=== PATIENT | female | born 1985 | race Two or more races ===

== ENCOUNTER 2017-01-23 22:51 | Emergency (ER) | payer SELFPAY ==
[~2017-01-23] VITALS: Ht 165.1 cm; Wt 85.2 kg
[~2017-01-23 22:51] MED LIST: DENIES CURRENT MEDS; IBUPROFEN600 MG PO; LORTAB 7.57.5 MG PO; PRENATAL1 TA1 PO; ULTRAM50 M1 PO; no home meds
[2017-01-23] MEDS ORDERED: NAPROSYN500 MG PO (23:43)
[2017-01-24 00:20] VITALS: BP 129/90
== END 2017-01-24 00:25 | disposition home or self-care (01) | DRG 605 ==
LOC: ED 22:51
DX: S40.011A Contusion of right shoulder, initial encounter (principal); W11.XXXA Fall on and from ladder, initial encounter; Y93.89 Activity, other specified; Y92.009 Unspecified place in unspecified non-institutional (private) residence as the place of occurrence of the external cause

== ENCOUNTER 2020-03-02 | Emergency (ER) | payer SELFPAY ==
[~2020-03-02] MED LIST changes: +NAPROSYN500 MG PO
[2020-03-02] MEDS ORDERED: MOTRIN400 MG PO (19:32)
[2020-03-02] MEDS ORDERED: VOLTAREN1%GEL TOP (19:32)
== END 2020-03-02 19:40 | disposition home or self-care (01) | DRG 563 ==
DX: S86.911A Strain of unspecified muscle(s) and tendon(s) at lower leg level, right leg, initial encounter (principal); W19.XXXA Unspecified fall, initial encounter

== ENCOUNTER 2021-05-05 01:19 | Emergency (ER) | payer OTHER ==
[~2021-05-05] VITALS: Ht 165.1 cm; Wt 61.0 kg
[~2021-05-05 01:19] MED LIST changes: +MOTRIN400 MG PO; +VOLTAREN1%GEL TOP
[2021-05-05] MEDS ORDERED: VOLTAREN75 MG PO (02:15)
[2021-05-05 02:49] VITALS: BP 96/63
== END 2021-05-05 02:51 | disposition home or self-care (01) ==
LOC: ED 01:19
DX: S86.911A Strain of unspecified muscle(s) and tendon(s) at lower leg level, right leg, initial encounter (principal); X50.0XXA Overexertion from strenuous movement or load, initial encounter; Y93.68 Activity, volleyball (beach) (court)

== ENCOUNTER 2023-12-15 14:03 | Emergency (ER) | payer SELFPAY ==
[~2023-12-15] VITALS: Ht 165.1 cm; Wt 83.0 kg
[2023-12-15] VITALS (8 sets, daily range): BP systolic 106–118; BP diastolic 74–83
[~2023-12-15 14:03] MED LIST changes: +VOLTAREN75 MG PO
[2023-12-15 16:14] LABS: URINE BILIRUBIN - DIPSTICK Negative (NEGATIVE); URINE BLOOD DIPSTICK Trace-lysed (NEGATIVE); URINE COLOR Yellow; URINE GLUCOSE - DIPSTICK Negative (NEGATIVE); URINE KETONE Negative (NEGATIVE); URINE LEUK ESTERASE Trace (NEGATIVE); URINE NITRITE - DIPSTICK Negative (Negative); URINE PROTEIN - DIPSTICK Negative (NEG-TRACE); URINE SPECIFIC GRAVITY 1.015; URINE UROBILINOGEN - DIPSTICK 0.2 E.U./dL (0.2)
[2023-12-15] MEDS ORDERED: FLEXERIL5 M1 PO (18:50)
[2023-12-15] MEDS ORDERED: PERCOCET 5/321 COMBO PO (18:50)
== END 2023-12-15 19:05 | disposition home or self-care (01) | DRG 552 ==
LOC: ED 14:03
PROVIDERS: Nurse Practitioner Family
DX: M51.86 Other intervertebral disc disorders, lumbar region (principal)

== ENCOUNTER 2024-07-17 21:09 | Emergency (ER) | payer SELFPAY ==
[~2024-07-17] VITALS: Ht 165.1 cm; Wt 82.0 kg
[~2024-07-17 21:09] MED LIST changes: +FLEXERIL5 M1 PO; +PERCOCET 5/321 COMBO PO
[2024-07-17] MEDS ORDERED: NEOMYCIN-BACITRACIN-POLYMYXIN 0.5 GM/PAK PAK TOP ONE (21:30)
[2024-07-17] MEDS ORDERED: Diph, Acellular Pertussis, Tet 0.5 ML/VIAL (Tdap) SDV IM ONE (21:30)
[2024-07-17 21:45] VITALS: BP 112/85
== END 2024-07-17 21:45 | disposition home or self-care (01) | DRG 605 ==
LOC: ED 21:09
PROC: 0HQGXZZ Repair Left Hand Skin, External Approach (ICD-10-PCS; principal; 2024-07-17)
DX: S61.412A Laceration without foreign body of left hand, initial encounter (principal); W26.0XXA Contact with knife, initial encounter; Y93.G1 Activity, food preparation and clean up; Y92.000 Kitchen of unspecified non-institutional (private) residence as the place of occurrence of the external cause

== ENCOUNTER 2024-07-30 00:45 | Emergency (ER) | payer SELFPAY ==
[~2024-07-30] VITALS: Ht 165.1 cm; Wt 82.0 kg
[2024-07-30 01:21] VITALS: BP 112/78
== END 2024-07-30 01:37 | disposition home or self-care (01) | DRG 950 ==
LOC: ED 00:45
DX: S61.412D Laceration without foreign body of left hand, subsequent encounter (principal); W26.0XXD Contact with knife, subsequent encounter